=== PATIENT | male | born 1985 | race Caucasian/White ===

== ENCOUNTER 2018-10-02 00:04 | Inpatient (IN) | payer OTHER ==
[~2018-10-02] VITALS: Ht 177.8 cm; Wt 90.7 kg
[2018-10-02] VITALS (68 sets, daily range): BP systolic 89–128; BP diastolic 46–84
--- NOTE | 2018-10-02 00:04 | NUR ---
PT BIBA FROM A HOUSE [employer]STITUTION [employer]Y, C/O SEIZURES TONIGHT. 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 PT HAS HX OF EPILEPSY AND NOT CURRENTLY ON ANY MEDICATIONS. PT WAS COMBATIVE ON SCENE, IN 4 POINT RESTRAINTS UPON ARRIVAL. PT RECEIVED 5MG IN AND 10MG IM. PT THRASHING, EXTREMELY COMBATIVE AND UNCOOPERATIVE. 4 POINT RESTRAINTS PLACED ON PATIENT TO ALL EXTREMITIES.
--- NOTE | 2018-10-02 00:04 | NUR ---
PT JERRELL ALS. TAKEN TO BED 10
--- NOTE | 2018-10-02 00:05 | NUR ---
Dr. Salcedo examining patient.
[2018-10-02] MEDS ORDERED: NACL 0.9% 2,000 ML IV ONE (00:10)
[2018-10-02] MEDS ORDERED: ONDANSETRON 4 MG/2 ML VIAL IVP ONE (00:10)
[2018-10-02] MEDS ORDERED: LORazepam 2 MG/ML VIAL IVP ONE ×3 (00:10→05:25)
[2018-10-02] MEDS ORDERED: LORazepam 2 MG/ML VIAL ONE ×2 (00:18→04:46)
--- NOTE | 2018-10-02 00:18 | NUR ---
SEVERAL ATTEMPTS MADE FOR IV INSERTION BY SEVERAL NURSES AND UNABLE TO OBTAIN ACCESS D/T PATIENT THRASHING, VIOLENTLY MOVING IN GURNEY, TRYING TO HIT HIS HEAD ONTO RAILING, BITING AT RESTRAINTS. SEVERAL STAFF MEMBERS AT BEDSIDE TRYING TO KEEP PATIENT FROM HARMING SELF OR OTHERS. PT SCREAMING AND VERY UNCOOPERATIVE, TRYING TO KICK AND HIT STAFF. PT NOT FOLLOWING COMMANDS, VERBALLY AGGRESSIVE TOWARD STAFF. SECURITY CALLED TO BEDSIDE FOR ASSISTANCE.
[2018-10-02] MEDS ORDERED: diphenhydrAMINE 50 MG/ML VIAL IVP ONE (00:20)
[2018-10-02] MEDS ORDERED: HALOPERIDOL IM 5 MG/ML VIAL IM ONE (00:20)
[2018-10-02] MEDS ORDERED: levETIRAcetam 1,000 MG in NACL 0.9% 100 ML IV ONE (00:20)
--- NOTE | 2018-10-02 00:20 | NUR ---
PT THRASHING IN GURNEY WITH RESTRAINTS IN PLACE, YELLING AT STAFF, UNCOOPERATIVE, HYPERVENTILATING. UNABLE TO CARE FOR PATIENT. SECURITY CALLED TO BEDSIDE FOR ASSISTANCE.
[2018-10-02] MEDS ORDERED: diphenhydrAMINE 50 MG/ML VIAL ONE (00:28)
[2018-10-02] MEDS ORDERED: HALOPERIDOL IM 5 MG/ML VIAL ONE (00:29)
--- NOTE | 2018-10-02 00:30 | NUR ---
María grissom in [facility] - 10/02/18 at 0339 [id number] PT [address] VIA OPAL Miranda RN AND DARY TECH.
--- NOTE | 2018-10-02 00:30 | NUR ---
PT CONTINUES TO VIOLENTLY THRASH, THREATENING MYSELF IF I DON'T RELEASE THE RESTRAINTS. PT VERBALLY AGGRESSIVE, THRASHING IN THE GURNEY, TRYING TO LUNGE OUT OF THE BED, YANKING AND PULLING ON RESTRAINTS. PT NOT RESPONSIVE TO VERBAL COMMANDS. PT ACTING OUT OF CONTROL. PT INTERMITTENTLY CRYING. PT TRYING TO LUNGE OUT OF GURNEY. PT WAS ADVISED TO CALM DOWN TO PREVENT INJURY. PT UNCOOPERATIVE, HITTING HIS HEAD ONTO RAILING. RAILING PREVIOUSLY PROTECTED WITH SEIZURE PADS. PT INTENTIONALLY TRYING TO HIT HIS HEAD ONTO RAILING. MORE PILLOWS PROVIDED TO PREVENT INJURY. DR. CLEMENT MADE AWARE AND MORE ORDERS RECEIVED. SECURITY AND MORE STAFF CALLED TO BEDSIDE FOR HELP TO ADJUST PATIENT POSITION IN BED.
--- NOTE | 2018-10-02 00:50 | NUR ---
PT ASLEEP. RESTRAINTS REMOVED. REMAINS ON CONTINOUS CARDAIC MONITORING. VITAL SIGNS REMAIN STABLE.
[2018-10-02] MEDS ORDERED: levETIRAcetam 100 MG/ML VIAL IV ONE (00:54)
[2018-10-02 00:59] LABS: BASOPHILS % (AUTO) 0.5 % (0.0-2.0); EOSINOPHILS # (AUTO) 0.2 K/uL (0-0.4); EOSINOPHILS % (AUTO) 4.1 % (0.0-4.0); HEMATOCRIT 38.9 % (36-52); HEMOGLOBIN 13.3 g/dL (12.0-18.0); LYMPHOCYTES # (AUTO) 1.4 K/uL (2.0-11.5); MEAN CORPUSCULAR HEMOGLOBIN 31 pg (27-31); MEAN CORPUSCULAR HGB CONC 34 g/dL (33-37); MEAN CORPUSCULAR VOLUME 91.4 fL (80-94); MONOCYTES # (AUTO) 0.3 K/uL (0.8-1.0); MONOCYTES % (AUTO) 5.9 % (1.7-9.3); NEUTROPHILS # (AUTO) 2.9 K/uL (1.8-7.7); NEUTROPHILS % (AUTO) 60.5 % (42.2-75.2); PLATELET COUNT (AUTO) 163 K/uL (140-450); RED BLOOD CELL COUNT(AUTO) 4.26 MIL/uL (4.20-6.10); WHITE BLOOD COUNT (AUTO) 4.8 K/uL (4.8-10.8)
[2018-10-02] MEDS ORDERED: diphenhydrAMINE 50 MG/ML VIAL IM ONE (01:05)
[2018-10-02 01:09] LABS: ALBUMIN 3.8 g/dL (3.4-5.0); ANION GAP 16.7 (8-16); CARBON DIOXIDE 22.1 mmol/L (21-32); CREATININE 1.4 mg/dL (0.7-1.3); TOTAL BILIRUBIN 0.4 mg/dL (0.0-1.0)
[2018-10-02 01:17] LABS: POTASSIUM 2.8 mmol/L (3.5-5.1)
--- NOTE | 2018-10-02 01:19 | NUR ---
EKG PERFORMED AT BEDSIDE
[2018-10-02 01:20] LABS: APPEARANCE,URINE CLEAR (CLEAR); BILIRUBIN,URINE NEGATIVE (NEGATIVE); BLOOD, URINE 1+ (NEGATIVE); COLOR,URINE YELLOW (YELLOW); LEUKOCYTE ESTERASE ,URINE NEGATIVE (NEGATIVE); NITRITE, URINE NEGATIVE (NEGATIVE); PH,URINE 5.5 (5.0-9.0); UGLUCOSE NEGATIVE (NEGATIVE)
[2018-10-02] MEDS ORDERED: KCL 20 MEQ/WATER INJ PREMIX 200 ML IV ONE (01:20)
[2018-10-02 01:29] LABS: BARBITURATE, URINE NEG. ng/ml (NEG <=200); BENZODIAZEPINE, URINE POS. ng/mL (NEG <=200); CANNABINOID, URINE NEG. ng/mL (NEG <=50); COCAINE, URINE POS. ng/mL (NEG <=300); OPIATE, URINE NEG. ng/mL (NEG <=2000); PHENCYCLIDINE SCREEN,URINE NEG. ng/mL (NEG <=25)
--- NOTE | 2018-10-02 01:38 | NUR ---
INFORMED , ANDREW, OF PTS PLAN OF CARE. CALL BACK NUMBER: [phone].
[2018-10-02 01:45] LABS: RBC,URINE 0-5 /HPF (0-5); URINE AMORPHOUS URATE 1+ /HPF (None Seen); WBC,URINE 0-5 /HPF (0-5)
[2018-10-02] MEDS ORDERED: NACL 0.9% 1,000 ML IV ONE (01:55)
--- NOTE | 2018-10-02 02:01 | NUR ---
BP AT 86/53. ORDER FOR 1L NS BOLUS RECEVIED.
--- NOTE | 2018-10-02 02:30 | NUR ---
ER MD AWARE OF CURRENT BP. ORDER FOR 1L NS BOLUS AND 0.2 FLUMAZENIL RECEIVED.
[2018-10-02] MEDS ORDERED: FLUMAZENIL 0.5 MG/5 ML VIAL IVP ONE ×4 (02:35→03:20)
[2018-10-02] MEDS ORDERED: NOREPINEPHRINE 4 MG in DEXTROSE 5% 250 ML IV PRN (02:55)
--- NOTE | 2018-10-02 03:00 | NUR ---
ER MD AWARE OF CURRENT BP. MD AT BEDSIDE. ORDERS TO FOLLOW.
[2018-10-02] MEDS ORDERED: NOREPINEPHRINE 4 MG/4 ML VIAL IV ONE (03:15)
--- NOTE | 2018-10-02 03:30 | NUR ---
PT TO CT VIA OPAL Miranda RN AND TECH. DARY
--- NOTE | 2018-10-02 03:57 | NUR ---
PT RETURN FROM CT
--- NOTE | 2018-10-02 04:00 | NUR ---
RETURN FROM CT WITH PT. CURRENT BP 100/47. ORDERS FROM ER MD CLEMENT TO HOLD LEVOPHED INFUSION TO ASSESS BLOOD PRESSURE WITHOUT MEDICATION INTERVENTION.
--- NOTE | 2018-10-02 04:09 | NUR ---
X-RAY AT BEDSIDE.
[2018-10-02 04:13] LABS: CKMB RELATIVE INDEX 0.9 (0.0-2.5); CREATINE KINASE MB 4.7 ng/mL (0-3.6)
--- NOTE | 2018-10-02 04:15 | NUR ---
CURRENT BP- 83/46. ER MD NOTIFIED. ORDER TO RESUME LEVOPHED DRIP RECEVIED.
--- NOTE | 2018-10-02 04:20 | NUR ---
LEVOPHED RESUMED. ER MD AT BEDSIDE FOR CENTRAL LINE INSERTION.
--- NOTE | 2018-10-02 04:35 | NUR ---
VERBAL ORDER RECEIVED FOR 1MG ATIVAN FOR AGITATION DURING CENTRAL LINE PLACEMENT.
--- NOTE | 2018-10-02 04:38 | NUR ---
María grissom in ED - 10/02/18 at 0442 by CHEN VERBAL ORDER FOR 1MG ATIVAN RECEIVED FOR AGITATION DURING CENTRAL LINE PLACEMENT.
--- NOTE | 2018-10-02 04:39 | NUR ---
VERBAL ORDER FOR 30MG KETAMINE FOR AGITATION DURING PROCEDURE.
--- NOTE | 2018-10-02 04:42 | NUR ---
VERBAL ORDER FOR 1MG ATIVAN FOR CONTINOUS AGIATION DURING CENTRAL LINE PLACEMENT.
[2018-10-02] MEDS ORDERED: KETAMINE 10 MG/ML UD SYR **ER IVP ONE ×2 (04:49→05:25)
--- NOTE | 2018-10-02 05:00 | NUR ---
Note praveena in EDM - 10/02/18 at 0517 by [email or web address] #16 FR collier catheter utilizing sterile technique. Immediate return of clear yellow urine noted. Bedside drainage bag placed below level of bladder. Urine sample collected and sent to lab. Pt tolerated procedure well.
--- NOTE | 2018-10-02 05:03 | NUR ---
CENTRAL LINE PLACED BY ANNA DOUGHERTY AT [facility].
--- NOTE | 2018-10-02 05:05 | NUR ---
#16 FR collier catheter utilizing sterile technique. Immediate return of clear yellow urine noted. Bedside drainage bag placed below level of bladder. Urine sample collected and sent to lab. Pt tolerated procedure well.
--- NOTE | 2018-10-02 05:38 | NUR ---
OKAY TO USE CENTRAL LINE PER DR DOX. BREWER MOVED TO CENTRAL LINE.
--- NOTE | 2018-10-02 05:45 | NUR ---
Patient will be admitted to care of DR BECKMAN. Admited to ICU. Will go to room ICU-03. Belongings list completed. Report to HANH KELLOGG.
--- NOTE | 2018-10-02 06:15 | NUR ---
PT ARRIVED TO ICU IN [facility] FROM ED FOR HYPOTENSION AND POSSIBLE SEIZURE EPISODES. PT SEDATED, BREATHING NORMALLY, SINUS COTY ON THE MONITOR, ABD INTACT, ACTIVE. FOLWY INTACT AND DRAINING WELL. UNABLE TO GATHER INFORMATION REGARDING PT DUE TO PT'S MENTAL STATUS. SKIN INTACT. LEVOPHED IS RUNNING ON LOW DOSE. WILL CONTINUE TO MONITOR CLOSELY.
[2018-10-02] MEDS ORDERED: ACETAMINOPHEN 325 MG TAB PO PRN (06:30)
[2018-10-02] MEDS ORDERED: LORazepam 2 MG/ML VIAL IVP PRN (06:30)
[2018-10-02] MEDS ORDERED: ALBUTEROL 0.083% 2.5 MG/3 ML NEBU INH PRN (06:30)
[2018-10-02] MEDS ORDERED: MORPHINE SULFATE 2 MG/ML SYR IVP PRN (06:30)
[2018-10-02] MEDS ORDERED: ONDANSETRON 4 MG/2 ML VIAL IVP PRN (06:30)
--- NOTE | 2018-10-02 07:20 | NUR ---
SBAR GIVEN TO LALITA RN, PT ON LEVOPHED, NO S/S OF ANY ACUTE DISTRESS AT THIS TIME. WILL CONTINUE TO MONITOR CLOSELY.
--- NOTE | 2018-10-02 07:30 | NUR ---
RECEIVED REPORT FROM VALDEZ SCHAFER. PT. IS SLEEPING FROM SEDATION,SKIN DRY AND WARM TO TOUCH. COLOR IS NORMAL , HE IS ON O2 AT 2L NC, BREAST SOUND IS CLEAR . ABDOMEN IS SOFT BOWEL SOUND IS ACTIVE. HE IS NPO. IV SITE HAS CENTRAL; LINE ON RT IJ INFUSING D5 NS AT 80 ML/H , ON LEVOPHED AT 4MCG . THERE SOME RED AREA ON HAND AND LEGG BUT NO OPEN AREA.APODACA CATH DRAIN CLEAR LIGHT YELLOW URINE.
[2018-10-02] MEDS: DEXT 5% /NACL 0.9% 1,000 ML IV SCH ×3 (07:31→20:05)
--- NOTE | 2018-10-02 08:43 | NUR ---
PATIENT HAS BEEN SCREENED AND CATEGORIZED MODERATE NUTRITION RISK. PATIENT WILL BE SEEN WITHIN 3-5 DAYS OF ADMISSION. 10/04/18[address]
--- NOTE | 2018-10-02 10:57 | NUR ---
UNABLE TO SCREEN AT THIS TIME, EEG ON GOING AT BEDSIDE WILL FOLLOW UP.
--- NOTE | 2018-10-02 11:12 | NUR ---
SEEN BY XI HAWKINS AT BEDSIDE PT. IS VERY SLEEPY AT THE TIME. NO ORDER RECEIVED.
--- NOTE | 2018-10-02 11:52 | NUR ---
PT TO CT AND BACK. BAGGED PT WITH 100% FIO2 AMBU BAG. PT BACK IN UNIT AND BACK ON VENTILATOR WITH CURRENT SETTINGS. NO SOB OR DISTRESS NOTED. SPO2 99% HR 111. WILL CONTINUE TO MONITOR.
--- NOTE | 2018-10-02 13:12 | NUR ---
SW attempted to conduct assessment with patient. Patient was unarousable. SW used verbal cues multiple times. SW spoke to nurse and will attempt to follow up at a later time.
--- NOTE | 2018-10-02 13:50 | NUR ---
SEEN BY DR ROYAL AT BED SIDE ORDER RECEIVED, SEIZURE REPORT SENT TO [facility].
--- NOTE | 2018-10-02 13:54 | NUR ---
SEEN BY DR. ROYAL AT BED SIDE , HE SAID IF HE HAS NO SIEZURE IN NEXT 24 HR HE CAN BE D/C HOME. THE REPORTED OF SEIZURE FORM FAX TO [facility]. [phone]. Addendum: 10/02/18 at 1901 by Stacey Still RN THIS NOTE IS DUPLICATED.
[2018-10-02] MEDS ORDERED: levETIRAcetam 1,000 MG in NACL 0.9% 100 ML IV SCH ×2 (14:10→21:00)
--- NOTE | 2018-10-02 15:29 | NUR ---
CALLED DR AMANDA HARRELL'S OFFICE AT [phone] TO SET UP FOLLOW UP VISIT. LEFT A MESSAGE. AWAITING FOR CALL BACK.
--- NOTE | 2018-10-02 17:00 | NUR ---
PT AWAKE FOR SHORT TIME ,FOLLOW COMMAND , BACH TO SLEEP.
--- NOTE | 2018-10-02 18:00 | NUR ---
VS STABLE LEVOPHED IV DRIP AT 2 MCG/MIN, NO SIEZURE NOTED,
--- NOTE | 2018-10-02 19:30 | NUR ---
RECEIVED REPORT FROM AM SHIFT, PT IS SLEEPING,PT ON O2 AT 2LPM VIA N/C.NO S/S OF RESP DISTRESS, NO SOB. BRADYCARDIA NOTED ON ADMINISTRATIVE AND PROGRAM SPECIALIST. CENTRAL LINE TO RIGHT IJ TRIPLE LUMENS INTACT WELL, PERIPHERAL LINE TO RFA NO 22 AND LEFT WRIST NO 2O.IV ON D5 IN NS AT 80 CC/HR AND LEVOPHED DRIPS AT 2 MCG/MIN. PT IS NPO AT THIS TIME, ABD SOFT NON DISTENDED,PT IS SLEEPING EASY TO AWAKE,DENIAL PAIN. ABD SOFT NON DISTENDED. SKIN INTACT. NOTED MULTIPLE RED DISCOLORATION BUE.F/C IN PLACE WITH YELLOW CLEAR URINE NOTED. GENTLE CARE GIVEN.KEPT CLEAN AND DRY.
--- NOTE | 2018-10-02 20:06 | NUR ---
RECEIVED PATIENT ON 2L NASAL CANNULA, PULSE OX SAT 98%. PATIENT SLEEPING BUT AWAKENS TO VERBAL COMMANDS. PATIENT DENIES SOB. NO RESPIRATORY DISTRESS NOTED AT THIS TIME. WILL CONTINUE TO MONITOR.
--- NOTE | 2018-10-02 20:20 | NUR ---
NIGHT MED GIVEN TOLERATING WELL
--- NOTE | 2018-10-02 22:38 | NUR ---
OR SHARIFA MORALES CALLED AND UP DATE PT STATUS THAT PER MD MAY GO HOME IF NO SEIZURE IN 24 HOURS. PT IS AWAKE AT THIS TIME AND REORIENT PT TO DAY AND TIME. PT GO BACK TO SLEEP
--- NOTE | 2018-10-02 22:50 | NUR ---
PT ABLE TO REPOSITION HIM SELF.
--- NOTE | 2018-10-02 23:05 | NUR ---
PT AWAKE AND REQUEST EXTRA BLANKET.
--- NOTE | 2018-10-02 23:40 | NUR ---
PT RECEIVING THE PHONE CALL ONT HIS CELL PHONE. HE SAID HIS ANDREW MADE HIM UPSET.
--- NOTE | 2018-10-02 23:55 | NUR ---
PT CALLED AND ASK TO REMOVE THE BP CUFF. EXPLAIN HE NEED IT TO MONITOR HIS BP BECAUSE STILL LOW. HE STILL REFUSED AND TAKE IT OFF.
--- NOTE | 2018-10-03 | NUR ---
PT JUST FINISH HAVING PHONE CALL WITH THE AND PT SAYING HE WANT TO LEAVE THE HOSPITAL.MAKE PT AWARE THAT IF HE INSIST TO LEAVE WITH OUT MD ORDER CONSIDER AGAINST MEDICAL ADVICE. EXPLAIN RISK OF AMA. PT MADE AWARE BP STILL LOW AND ON IV LEVOPHED TO HELP INCREASE HIS BP. ALSO MADE AWARE THAT HR IS CRITICALLY LOW. PT SAYING HE IS AWARE AND THIS ALWAYS HAPPENED TO HIM. HE SAID HE WANT TO LEAVE AND WILL SIGN ANY PAPER NEEDED TO MAKE HIM GO HOME. PT MADE AWARE THIS COULD RISK ON HIS LIFE POSSIBLE D/T CONDITION NOT STABLE STILL WITH LOW BP AND HR..PT STILL INSIST TO GO AMA.
--- NOTE | 2018-10-03 00:05 | NUR ---
DR.KIM HODGE TANK ERECTOR FOR DR. HERNÁNDEZ MADE AWARE PT DX AND HX. AWARE THAT PT IS STILL ON LEVOPHED 2 MCG/MIN AND HR STILL CRITICALLY LOW BUT PT INSIST TO GO AMA. RISK ALREADY EXPLAIN TO PT. PER TELL PT THAT HE COULD WHEN DISCONNECT FROM THE MEDICATIONS.AND SUGGEST TO STAY UNTIL MORNING UNTIL V/S IS STABLE.
--- NOTE | 2018-10-03 00:10 | NUR ---
CHARGE NURSE AWARE THAT PT IS DECIDED TO GO AMA, CHARGE NURSE COME TO HELP TO EXPLAIN THE RISK TO PT AND REMIND THAT HE IS STILL NEED HIS MEDICATIONS AND NEED TO CONTINUE TO CLOSE OBSERVATION. PT STILL INSIST TO GO AMA.REMIND PT THAT COULD RISK HIS LIFE. PT COULD D/T BP IS LOW AND HR IS LOW. PT SAID IT OK.HE WANT TO GO AMA. PLACED CALL AGAIN TO AND MADE HIM AWARE THAT PT STILL WANT TO AMA.
--- NOTE | 2018-10-03 00:15 | NUR ---
PT SIGN AMA PAPER.PT IS ALERT AND ORIENTED AND AWARE OF HIS CONDITION.
--- NOTE | 2018-10-03 00:20 | NUR ---
SHARIFA MORALES CALLED AND MADE AWARE PT WANT TO AMA AND ALREADY SIGN THE PAPER. ALSO PUGA THAT PT NOT STABLE YET BP IS LOW AND HR CRITICALLY LOW.DISCONNECT ALL THE VERIFYING SPECIALIST. DISCONNECT F/C NOTED 500 CC CLEAR URINE. NO BLEEDING FROM IV PERIPHERAL AND FROM CENTRAL LINE ON RIGHT IJ.
--- NOTE | 2018-10-03 00:45 | NUR ---
PT LEFT WITH SHARIFA MORALES THE . PT WALK FROM THE ROOM TO THE LOBBY. ALL BELONGING GIVEN TO PT.
== END 2018-10-03 00:45 | disposition left against medical advice (07) | DRG 53 ==
LOC: MED 00:04 → EDBD 00:04 → MIC 05:33
PROVIDERS: ADMIT Internal Medicine Pulmonary Disease; ATTEND Internal Medicine Pulmonary Disease
PROC: 02HV33Z Insertion of Infusion Device into Superior Vena Cava, Percutaneous Approach (ICD-10-PCS; principal; 2018-10-02)
PROC: B548ZZA Ultrasonography of Superior Vena Cava, Guidance (ICD-10-PCS; 2018-10-02)
DX: G40.909 Epilepsy, unspecified, not intractable, without status epilepticus (principal); G93.41 Metabolic encephalopathy; F14.10 Cocaine abuse, uncomplicated; F15.10 Other stimulant abuse, uncomplicated; J45.909 Unspecified asthma, uncomplicated; E87.6 Hypokalemia; F10.129 Alcohol abuse with intoxication, unspecified; Y90.9 Presence of alcohol in blood, level not specified; I95.2 Hypotension due to drugs; T50.995A Adverse effect of other drugs, medicaments and biological substances, initial encounter; Z53.21 Procedure and treatment not carried out due to patient leaving prior to being seen by health care provider; Y92.89 Other specified places as the place of occurrence of the external cause; Z91.19 Patient's noncompliance with other medical treatment and regimen
CPT/HCPCS: 36415; 36556; 51702; 70450; 71045; 80053; 80305; 81001; 82550; 82553; 83605; 84484; 85025; 87081; 93005; 95816; 96365; 96372; 96375; 96376; 99291; 99292; G0482; J0696; J1200; J1630; J1953; J2060; J2405; J3480; J3490; J7042; J7060; J7613; Q0092

== ENCOUNTER 2020-06-24 20:06 | Emergency (ER) | payer OTHER ==
[~2020-06-24] VITALS: Ht 177.8 cm; Wt 88.0 kg
[2020-06-24] MEDS ORDERED: LORazepam 2 MG/ML VIAL ONE (20:14)
[2020-06-24] MEDS ORDERED: NACL 0.9% 2,000 ML IV ONE (20:25)
[2020-06-24] MEDS ORDERED: LORazepam 2 MG/ML VIAL IM ONE (20:25)
[2020-06-24 20:39] VITALS: BP 134/89
--- NOTE | 2020-06-24 20:47 | NUR ---
34 Y/O M BIBA FOR INTOXICATION AND SEIZURES. PT BED RAILS ARE PADDED. PT HAS PMH: SEIZURES, ASTHMA, ANXIETY AND DEPRESSION. PT IS CURRENTLY A&O X4, STATED HE WAS DRINKING FIREBALL (UNAWARE OF HOW MUCH WAS CONSUMED) AND CAME FROM HOME. PT MOTHER IN LAW CALLED FOR [facility]. PT STATED IS OKAY TO GIVE INFORMATION, BUT NOT MOTHER IN LAW. PT WAS ACTIVELY HAVING SEIZURES UPON ARRIVAL, SUCTION WAS NEEDED. PT IN BED LAYING COMFORTLY. PT STATED HE ABUSES ALCOHOL AND COCAINE, BUT NO COCAINE USE IN 6 DAYS. TESTED POSITIVE FOR COVID 05/24/19. DENIES CONTACT WITH ANYONE COVID POSITIVE OR COB, COUGH, CHEST PAIN.
--- NOTE | 2020-06-24 21:09 | NUR ---
LABS HAVE BEEN DRAWN, URINE IS COLLECTED. WILL BE SENT TO LAB
--- NOTE | 2020-06-24 21:15 | NUR ---
PT SPOKE WITH . INFORMED PT THAT HE WANTS HIM TO LEAVE TO GO TO ANOTHER HOSPITAL. PT REQUESTS AMA. CHARGE AND ERMD NOTIFIED. CHARGE IS IN ROOM WITH PT RIGHT NOW.
[2020-06-24] MEDS ORDERED: levETIRAcetam 1,000 MG in NACL 0.9% 100 ML IV ONE (21:20)
[2020-06-24 21:25] LABS: BASOPHILS # (AUTO) 0.1 K/uL (0.00-0.22); BASOPHILS % (AUTO) 2.1 % (0.0-2.0); EOSINOPHILS # (AUTO) 0.2 K/uL (0-0.4); EOSINOPHILS % (AUTO) 3.6 % (0.0-4.0); HEMATOCRIT 46.2 % (36-52); HEMOGLOBIN 15.6 g/dL (12.0-18.0); LYMPHOCYTES # (AUTO) 1.3 K/uL (2.0-11.5); LYMPHOCYTES % (AUTO) 26.4 % (20.5-51.1); MEAN CORPUSCULAR HEMOGLOBIN 31 pg (27-31); MEAN CORPUSCULAR HGB CONC 34 g/dL (33-37); MEAN CORPUSCULAR VOLUME 91.6 fL (80-94); MONOCYTES # (AUTO) 0.3 K/uL (0.8-1.0); MONOCYTES % (AUTO) 5.2 % (1.7-9.3); NEUTROPHILS # (AUTO) 3.1 K/uL (1.8-7.7); NEUTROPHILS % (AUTO) 62.7 % (42.2-75.2); PLATELET COUNT (AUTO) 194 K/uL (140-450); RED BLOOD CELL COUNT(AUTO) 5.04 MIL/uL (4.20-6.10); RED CELL DISTRIBUTION WIDTH 13.9 % (11.6-13.7); WHITE BLOOD COUNT (AUTO) 4.9 K/uL (4.8-10.8)
[2020-06-24] MEDS ORDERED: levETIRAcetam 100 MG/ML VIAL IV ONE (21:30)
[2020-06-24 21:37] LABS: BARBITURATE, URINE NEGATIVE ng/ml (NEG <=200); BENZODIAZEPINE, URINE NEGATIVE ng/mL (NEG <=200); CANNABINOID, URINE NEGATIVE ng/mL (NEG <=50); COCAINE, URINE NEGATIVE ng/mL (NEG <=300); OPIATE, URINE NEGATIVE ng/mL (NEG <=2000); PHENCYCLIDINE SCREEN,URINE NEGATIVE ng/mL (NEG <=25)
[2020-06-24 21:42] VITALS: BP 134/89
--- NOTE | 2020-06-24 21:42 | NUR ---
Patient does not wish to proceed with medical care recommended by GETACHEW DOUGHERTY. Patient given information related to possible complications, up to and including , which could occur as a result of leaving hospital at this time. Patient verbalizes understanding of risks involved leaving against medical advice. Patient has signed AMA form.
[2020-06-24 21:47] LABS: POTASSIUM 3.5 mmol/L (3.5-5.1)
[2020-06-24 21:48] LABS: ALBUMIN 4.3 g/dL (3.4-5.0); ANION GAP 16.8 (8-16); CARBON DIOXIDE 25.7 mmol/L (21-32); TOTAL BILIRUBIN 0.3 mg/dL (0.0-1.0)
[2020-06-24 21:57] LABS: CREATININE 1.1 mg/dL (0.6-1.3)
--- NOTE | 2020-06-26 21:15 | NUR ---
LATE ENTRY- NORMAL SALINE 0.9% DISCONTINUED AT 9410
== END 2020-06-24 21:42 | disposition left against medical advice (07) ==
LOC: MED 20:06
DX: G40.909 Epilepsy, unspecified, not intractable, without status epilepticus (principal); F10.129 Alcohol abuse with intoxication, unspecified; J45.909 Unspecified asthma, uncomplicated; Y90.9 Presence of alcohol in blood, level not specified; Z88.8 Allergy status to other drugs, medicaments and biological substances
CPT/HCPCS: 36415; 80053; 80305; 85025; 96360; 96361; 96372; 99283; G0482; J1953; J2060; J7030

== ENCOUNTER 2020-12-17 02:55 | Emergency (ER) | payer OTHER ==
[~2020-12-17] VITALS: Ht 180.3 cm; Wt 90.7 kg
[2020-12-17 02:55] VITALS: BP 141/81
--- NOTE | 2020-12-17 02:55 | NUR ---
TO BED # 07AMBULATORY
--- NOTE | 2020-12-17 03:00 | NUR ---
BROUGHT IN BY AMBULANCE WITH C/O POSSIBLE SEIZURE ACTIVITY FOR A MINUTE. HE HAS BEEN HALLUCINATING HEARING VOICES SEEING PEOPLE - SATAN, AND INTEND TO HURT HIS BOYFRIEND OR FIANCEE.[facility] HANEY PUT HIM ON 5150 HOLD HX: ASTHMA AND SEIZURE RX:TAMRA PT STATED HE HASNT TAKEN HIS MEDICATION FOR 2WKS. ALLERG: PHENYTOIN
[2020-12-17] MEDS ORDERED: levETIRAcetam 500 MG TAB PO ONE (03:20)
--- NOTE | 2020-12-17 03:31 | NUR ---
URINE COLLECTED SENT WITH RAY FROM LAB.
--- NOTE | 2020-12-17 03:31 | NUR ---
EKG AT BEDSIDE.
--- NOTE | 2020-12-17 03:31 | NUR ---
LAB AT BEDSIDE.
--- NOTE | 2020-12-17 03:40 | NUR ---
PT STARTED SEIZURE. TONIC CLONIC. TURNED TO SIDE, EMT APPLIED NC 6L.
[2020-12-17 03:43] LABS: BASOPHILS % (AUTO) 0.3 % (0.0-2.0); EOSINOPHILS # (AUTO) 0.1 K/uL (0-0.4); EOSINOPHILS % (AUTO) 1.3 % (0.0-4.0); HEMATOCRIT 42.6 % (36-52); HEMOGLOBIN 14.4 g/dL (12.0-18.0); LYMPHOCYTES # (AUTO) 1.9 K/uL (2.0-11.5); LYMPHOCYTES % (AUTO) 39.4 % (20.5-51.1); MEAN CORPUSCULAR HEMOGLOBIN 32 pg (27-31); MEAN CORPUSCULAR HGB CONC 34 g/dL (33-37); MEAN CORPUSCULAR VOLUME 93.9 fL (80-94); MONOCYTES # (AUTO) 0.4 K/uL (0.8-1.0); MONOCYTES % (AUTO) 7.9 % (1.7-9.3); NEUTROPHILS # (AUTO) 2.5 K/uL (1.8-7.7); NEUTROPHILS % (AUTO) 51.1 % (42.2-75.2); PLATELET COUNT (AUTO) 193 K/uL (140-450); RED BLOOD CELL COUNT(AUTO) 4.54 MIL/uL (4.20-6.10); RED CELL DISTRIBUTION WIDTH 13.5 % (11.6-13.7); WHITE BLOOD COUNT (AUTO) 4.8 K/uL (4.8-10.8)
[2020-12-17] MEDS ORDERED: LORazepam 2 MG/ML VIAL ONE ×3 (03:46→03:54)
[2020-12-17 03:49] LABS: APPEARANCE,URINE CLEAR (CLEAR); BILIRUBIN,URINE NEGATIVE (NEGATIVE); BLOOD, URINE TRACE-I (NEGATIVE); COLOR,URINE YELLOW (YELLOW); LEUKOCYTE ESTERASE ,URINE NEGATIVE (NEGATIVE); NITRITE, URINE NEGATIVE (NEGATIVE); UGLUCOSE NEGATIVE (NEGATIVE)
[2020-12-17] MEDS ORDERED: levETIRAcetam 100 MG/ML VIAL IV ONE (03:56)
[2020-12-17 04:00] LABS: BARBITURATE, URINE NEGATIVE ng/ml (NEG <=200); BENZODIAZEPINE, URINE NEGATIVE ng/mL (NEG <=200); CANNABINOID, URINE NEGATIVE ng/mL (NEG <=50); COCAINE, URINE NEGATIVE ng/mL (NEG <=300); OPIATE, URINE NEGATIVE ng/mL (NEG <=2000); PHENCYCLIDINE SCREEN,URINE NEGATIVE ng/mL (NEG <=25)
--- NOTE | 2020-12-17 04:00 | NUR ---
SEIZURE ENDED. PT IS ABLE TO TALK AND MAKES PURPOSEFUL MOVEMENTS. PT IS A&O X4. PT RECIEVED 6MG OF ATIVAN IN TOTAL- 2 IM INJ AND 1 IVP WELL 3G OF KEPPRA IV. PT IS IN STABLE CONDITION .VSS. ERMD, 2 RNS, EMT, AND RT AT BEDSIDE THROUGHOUT SEIZURE. SEIZURE PRECAUTIONS MAINTAINED, PT IS ON POLITICAL SCIENCE RESEARCH ASSISTANT. BED LOCKED IN LOWEST POSITION, SIDE RAILS X2.
[2020-12-17 04:01] LABS: ALBUMIN 3.4 g/dL (3.4-5.0); ANION GAP 14.5 (8-16); ASPARTATE AMINOTRANSFERASE 32 U/L (15-37); CHLORIDE 106 mmol/L (98-107); CREATININE 1.1 mg/dL (0.6-1.3); GFR ARICAN-AMERICAN 98 mL/min (>90); GLUCOSE 97 mg/dL (74-106); POTASSIUM 3.5 mmol/L (3.5-5.1); SODIUM SERUM 140 mmol/L (136-145); TOTAL BILIRUBIN 0.4 mg/dL (0.0-1.0); UREA NITROGEN, BLOOD 18 mg/dL (7-18)
[2020-12-17 04:03] LABS: SALICYLATE < 2.8 mg/dL (2.8-20.0)
[2020-12-17 04:12] LABS: RBC,URINE 0-5 /HPF (0-5); WBC,URINE 0-5 /HPF (0-5)
[2020-12-17 04:49] LABS: ACETAMINOPHEN < 0.5 ug/ml (10-30)
--- NOTE | 2020-12-17 04:54 | NUR ---
PT IS SLEEPING, EQUAL RISE AND FALL OF CHEST WALL. VSS. PT IS IN STABLE CONDITION. ALL NEEDS MET AT THIS TIME.
--- NOTE | 2020-12-17 05:53 | NUR ---
PT IS SLEEPING, EQUAL RISE AND FALL OF CHEST WALL. OPENS EYES WHEN SPOKEN TO OR TOUCHED.VSS. PT IS IN STABLE CONDITION. ALL NEEDS MET AT THIS TIME.
--- NOTE | 2020-12-17 06:47 | NUR ---
PT IS SLEEPING. OPENS EYES IF MOVED. VSS. PT IN STABLE CONDITION. BED LOCKED IN LOWEST POSITION, SIDE RAILS X2.
[2020-12-17] MEDS ORDERED: NACL 0.9% 1,000 ML IV ONE (06:55)
--- NOTE | 2020-12-17 07:19 | NUR ---
RECEIVED REPORT FROM HANH DOMINGUEZ. TRANSFER OF CARE AT THIS TIME.
--- NOTE | 2020-12-17 07:20 | NUR ---
PT SLEEPING ON LEFT SIDE, VISIBLE EQUAL RISE AND FALL OF CHEST, VSS, WILL CONTINUE TO MONITOR.
--- NOTE | 2020-12-17 07:20 | NUR ---
COLLECTED ZACHARIAH PAGE AND ZACHARIAH LAYTON, WALKED TO LAB.
--- NOTE | 2020-12-17 07:29 | NUR ---
REPORT GIVEN TO ARELI. TRANSFER OF CARE AT THIS TIME.
--- NOTE | 2020-12-17 09:36 | NUR ---
PT SLEEPING ON RIGHT SIDE, VISIBLE EQUAL RISE AND FALL OF CHEST, WILL CONTINUE TO MONITOR.
--- NOTE | 2020-12-17 10:17 | NUR ---
PT AWAKE, ALERT, CALM AND COOPERATIVE REQUESTING URINAL. PRIVACY PROVIDED.
--- NOTE | 2020-12-17 10:20 | NUR ---
EMPTIED 800CC OF CLEAR, YELLOW URINE, NO SEDIMENT NOTED.
--- NOTE | 2020-12-17 11:46 | NUR ---
PT SLEEPING ON LEFT SIDE, VISIBLE EQUAL RISE AND FALL OF CHEST, WILL CONTINUE TO MONITOR.
--- NOTE | 2020-12-17 14:16 | NUR ---
PARTNER ANDREW [phone]
--- NOTE | 2020-12-17 14:21 | NUR ---
Spoke with pt Javid for pt updates and pending discharge. 5150 hold released per psychiatrist and pt medically cleared.
[2020-12-17 14:40] VITALS: BP 108/64
--- NOTE | 2020-12-17 14:41 | NUR ---
Patient discharged with v/s stable. Written and verbal after care instructions given ALCOHOL INTOXICATION, SEIZURE and explained. Patient verbalized understanding. Ambulatory with steady gait. All questions addressed prior to discharge. Advised to follow up with PMD.
== END 2020-12-17 14:41 | disposition home or self-care (01) ==
LOC: MED 02:55
DX: R56.9 Unspecified convulsions (principal); F10.129 Alcohol abuse with intoxication, unspecified; F91.9 Conduct disorder, unspecified; Z91.14 Patient's other noncompliance with medication regimen; Z20.822 Contact with and (suspected) exposure to COVID-19; J45.909 Unspecified asthma, uncomplicated; Z88.8 Allergy status to other drugs, medicaments and biological substances; Y90.7 Blood alcohol level of 200-239 mg/100 ml
CPT/HCPCS: 36415; 80053; 80305; 81001; 82550; 84484; 85025; 87426; 93005; 96360; 99291; G0480; G0482; J1953; J2060; J7030; U0003; 99285

== ENCOUNTER 2021-11-08 21:56 | Emergency (ER) | payer OTHER ==
[~2021-11-08] VITALS: Ht 180.3 cm; Wt 90.7 kg
[2021-11-08 21:56] VITALS: BP 134/83
--- NOTE | 2021-11-08 21:56 | NUR ---
TO BED ,JERRELL AND [employer] FOR SUICIDAL IDEATION FROM HOME WITH ARGUMENT WITH BOYFRIEND, HAD SIEZURE , VERSED 2,5 MG, NASALLY WAS GIVEN ENROUTE
[2021-11-08 22:41] LABS: BASOPHILS % (AUTO) 0.6 % (0.0-2.0); EOSINOPHILS # (AUTO) 0.1 K/uL (0-0.4); EOSINOPHILS % (AUTO) 2.9 % (0.0-4.0); HEMATOCRIT 44.2 % (36-52); LYMPHOCYTES # (AUTO) 2.1 K/uL (2.0-11.5); LYMPHOCYTES % (AUTO) 47.2 % (20.5-51.1); MEAN CORPUSCULAR HEMOGLOBIN 31 pg (27-31); MEAN CORPUSCULAR HGB CONC 34 g/dL (33-37); MEAN CORPUSCULAR VOLUME 92.1 fL (80-94); MONOCYTES # (AUTO) 0.3 K/uL (0.8-1.0); MONOCYTES % (AUTO) 7.4 % (1.7-9.3); NEUTROPHILS # (AUTO) 1.9 K/uL (1.8-7.7); NEUTROPHILS % (AUTO) 41.9 % (42.2-75.2); PLATELET COUNT (AUTO) 196 K/uL (140-450); RED CELL DISTRIBUTION WIDTH 14.2 % (11.6-13.7); WHITE BLOOD COUNT (AUTO) 4.5 K/uL (4.8-10.8)
[2021-11-08 23:03] LABS: ALBUMIN 3.9 g/dL (3.4-5.0); ANION GAP 18.1 (8-16); ASPARTATE AMINOTRANSFERASE 37 U/L (15-37); CARBON DIOXIDE 22.6 mmol/L (21-32); CHLORIDE 105 mmol/L (98-107); GFR ARICAN-AMERICAN 109 mL/min (>90); GLUCOSE 99 mg/dL (74-106); POTASSIUM 3.7 mmol/L (3.5-5.1); SODIUM SERUM 142 mmol/L (136-145); TOTAL BILIRUBIN 0.2 mg/dL (0.0-1.0); UREA NITROGEN, BLOOD 11 mg/dL (7-18)
[2021-11-08 23:05] LABS: ACETAMINOPHEN < 0.5 ug/ml (10-30); SALICYLATE < 2.8 mg/dL (2.8-20.0)
--- NOTE | 2021-11-08 23:18 | NUR ---
POORNIMA MORALES . PT GIVES FULL CONSENT FOT INFORMATION . [phone]
--- NOTE | 2021-11-08 23:20 | NUR ---
ANDREW AND PT REQUESTING THE PT RECIEVE REHAB SERVICES
--- NOTE | 2021-11-09 00:18 | NUR ---
36 Y/O M BIBA FOR 5150. PT GOT IN AN ARGUMWNT WITH POORNIMA MORALES. PT WANTED TO GET PYSHCH/ REHAB HELP FOR ALCHOL ADDICTION. PT THEN BECAME UPSET AND CALLED [facility] HANEY. PT STATED HE WANTED TO KILL HIMSELF . PT TREID TO KILL HIMSLEF BEFORE BY DRIVING OFF ENBANKMENT. [employer] TO TRANSPORT TO PSYCH FACILITY BUT PT HAD SEIZURE ON THE WAY. PT STATES HX OF EPILEPSY AND DEPRESSION RX: PT IS NON COMPLIANT OF MEDS. CANNOT RECALL CHRONIC ALCHOLISM.
--- NOTE | 2021-11-09 00:57 | NUR ---
GAVE UDS TO JAYSHREE
[2021-11-09] MEDS: NACL 0.9% 1,000 ML IV ONE (01:25)
[2021-11-09 02:51] LABS: BARBITURATE, URINE NEGATIVE ng/ml (NEG <=200); BENZODIAZEPINE, URINE NEGATIVE ng/mL (NEG <=200); CANNABINOID, URINE NEGATIVE ng/mL (NEG <=50); COCAINE, URINE NEGATIVE ng/mL (NEG <=300)
[2021-11-09 02:52] LABS: OPIATE, URINE POSITIVE ng/mL (NEG <=2000); PHENCYCLIDINE SCREEN,URINE POSITIVE ng/mL (NEG <=25)
--- NOTE | 2021-11-09 03:45 | NUR ---
PT ROTARY VENEER MACHINE OPERATOR WITH TELEPSYCH
[2021-11-09 05:30] VITALS: BP 127/68
--- NOTE | 2021-11-09 05:30 | NUR ---
Patient discharged with v/s stable. Written and verbal after care instructions given and explained. Patient verbalized understanding. Ambulatory with steady gait. All questions addressed prior to discharge. Advised to follow up with PMD. VSS, A/OX4, AMBULATORY, UNLABORED BREATHING, AND CALM DEMEANOR.
== END 2021-11-09 05:30 | disposition home or self-care (01) ==
LOC: MED 21:56
DX: F10.129 Alcohol abuse with intoxication, unspecified (principal); F19.10 Other psychoactive substance abuse, uncomplicated; F32.9 Major depressive disorder, single episode, unspecified; R51.9 Headache, unspecified; J45.909 Unspecified asthma, uncomplicated; F14.90 Cocaine use, unspecified, uncomplicated; Z88.8 Allergy status to other drugs, medicaments and biological substances
CPT/HCPCS: 36415; 80053; 80305; 85025; 96360; 99283; G0480; G0482; J7030

== ENCOUNTER 2022-01-04 00:50 | Emergency (ER) | payer OTHER ==
[~2022-01-04] VITALS: Ht 180.3 cm; Wt 85.7 kg
--- NOTE | 2022-01-04 00:53 | NUR ---
PT JERRELL ALS. TAKEN TO BED 10
[2022-01-04 00:56] VITALS: BP 145/93
--- NOTE | 2022-01-04 01:00 | NUR ---
PT BIBA FOR SEIZURE, EMS TRANSFERRED PT TO BED 10, EMS STATED PT HAS NOT BEEN TAKING HIS MEDICATIONS BECAUSE HE DOES NOT LIKE THE WAY THEY MAKE HIM FEEL, PT PLACED ON COMPUTER NETWORKING INSTRUCTOR ADJUNCT, DR CHILEL AT BEDSIDE, SEIZURE PADS PLACED, EMS ADMINISTERED 10 MG VERSED IM.
[2022-01-04] MEDS ORDERED: NACL 0.9% 1,000 ML IV ONE (01:05)
--- NOTE | 2022-01-04 01:43 | NUR ---
Patient x seizure episode, Dr. Remy notified.
--- NOTE | 2022-01-04 02:10 | NUR ---
PT RESTING IN BED, CONTINUE ON BUSINESS ENGLISH INSTRUCTOR, PT'S PARTNER ANDREW WAS UPDATED ON STATUS. HE STATED TO CALL HIM WHEN PT IS READY FOR DISCHARGE .
[2022-01-04 02:50] VITALS: BP 131/70
--- NOTE | 2022-01-04 02:55 | NUR ---
Patient discharged with v/s stable. Written and verbal after care instructions given and explained. Patient verbalized understanding. Wheel Chair Assisted with to car. All questions addressed prior to discharge. Advised to follow up with PMD. RELEASED PT TO PARTNER ANDREW.
== END 2022-01-04 02:55 | disposition home or self-care (01) ==
LOC: MED 00:50
DX: F10.129 Alcohol abuse with intoxication, unspecified (principal); R56.9 Unspecified convulsions; J45.909 Unspecified asthma, uncomplicated; Z88.8 Allergy status to other drugs, medicaments and biological substances
CPT/HCPCS: 96360; 99283; J7030

== ENCOUNTER 2023-04-21 01:27 | Emergency (ER) | payer OTHER ==
[~2023-04-21] VITALS: Ht 180.3 cm; Wt 81.6 kg
[2023-04-21] MEDS ORDERED: levETIRAcetam 1,000 MG in NACL 0.9% 100 ML IV ONE (01:30)
[2023-04-21] MEDS ORDERED: NACL 0.9% 1,000 ML IV ONE (01:30)
[2023-04-21 01:40] VITALS: BP 136/83; PULSE 112; RESP 24; TEMP 97.8; O2SAT 96
[2023-04-21] MEDS ORDERED: levETIRAcetam 100 MG/ML VIAL IV ONE ×2 (02:01→02:02)
[2023-04-21 02:21] LABS: ANION GAP 11.3 (8-16); CALCIUM 8.3 mg/dL (8.5-10.1); CREATININE 1.2 mg/dL (0.6-1.3); POTASSIUM 3.3 mmol/L (3.5-5.1)
[2023-04-21 02:45] LABS: AMPHETAMINE, URINE NEGATIVE ng/ml (NEG <=1000); BARBITURATE, URINE NEGATIVE ng/ml (NEG <=200); BENZODIAZEPINE, URINE NEGATIVE ng/mL (NEG <=200); CANNABINOID, URINE NEGATIVE ng/mL (NEG <=50); COCAINE, URINE NEGATIVE ng/mL (NEG <=300); OPIATE, URINE NEGATIVE ng/mL (NEG <=2000); PHENCYCLIDINE SCREEN,URINE NEGATIVE ng/mL (NEG <=25)
[2023-04-21 07:40] VITALS: BP 126/84; PULSE 84; RESP 24; TEMP 97.8; O2SAT 96
== END 2023-04-21 07:40 | disposition home or self-care (01) ==
LOC: MED 01:27
DX: F10.129 Alcohol abuse with intoxication, unspecified (principal); R56.9 Unspecified convulsions; F41.9 Anxiety disorder, unspecified; Z79.899 Other long term (current) drug therapy; Y90.9 Presence of alcohol in blood, level not specified
CPT/HCPCS: 36415; 80048; 80305; 82948; 96365; 99285; G0482; J1953; J7030